=== PATIENT | female | born 1945 | race Caucasian/White ===

== ENCOUNTER → 2022-03-06 | Outpatient (CLI) | payer MEDICARE, OTHER, SELFPAY ==
--- NOTE | 2022-03-06 09:27 | STRESSREP_ITS ---
Stress Test Report Date: 03-06-2022 Procedure: Pharmacologic stress nuclear imaging study Indications: PACs/PVCs; hyperlipidemia; hypertension Consent: Per the patient Procedure: The patient underwent pharmacologic (Regadenoson 0.4mg ) evaluation with a peak heart rate of 111 beats per minute (78%predicted maximal heart rate) and a resting blood pressure of 134/84 mmHg and a peak blood pressure of 150/60 mmHg. The baseline ECG demonstrated sinus bradycardia; PAC. The peak pharmacologic ECG demonstrated no obvious ECG changes. There were occasional PACs pretest and occasional PVCs during recovery. There was transient chest discomfort at peak recovery with subsequent spontaneous resolution. The examination was discontinued secondary to completion of protocol. Impression: 1. Pharmacologic (Regadenoson) evaluation 2. Peak pharmacologic ECG with no obvious ECG changes. 3. There were occasional PACs pretest and occasional PVCs during recovery. 4. Nuclear images pending Myocardial perfusion imaging study: Technique: The patient was injected with 15.0 millicuries of technetium 99m Cardiolite and subsequently rest SPECT Cardiolite nuclear imaging was obtained in the horizontal long, vertical long, and short axis views. The patient underwent pharmacologic (Regadenoson) evaluation with a peak heart rate of 111 beats per minute (78% percent predicted maximal heart rate) and a resting blood pressure of 134/84 mmHg and a peak blood pressure of 150/60 mmHg. The patient was injected with 45.0 millicuries of technetium 99m Cardiolite and subsequently stress SPECT Cardiolite nuclear imaging was obtained in the horizontal long, vertical long, and short axis views. A gated Cardiolite study at peak stress was obtained. Interpretation: Rest and stress SPECT Cardiolite nuclear imaging status post realignment, normalization, and attenuation correction demonstrate an element of body motion during image acquisition and status post-rest a small area of subtle diminished tracer uptake near the apical segment. There is end systolic thickening and brightening. The gated Cardiolite study demonstrates myocardial thickening and inward wall motion. The reported LVEF is 16%. Impression: 1. Rest and stress SPECT Cardiolite nuclear imaging demonstrate an element of body motion during image acquisition and status post-rest a small area of subtle diminished tracer uptake near the apical segment which may be compatible with shifting soft tissue attenuation/artifact and/or physiologic apical thinning with no myocardial perfusion changes considered diagnostic for associated stress-induced myocardial ischemia. 2. The gated Cardiolite study reports an LVEF of 16% (question technical accuracy). This note was generated with [employer] software. It may contain incorrect words, spelling, and punctuation that were not noted in checking the note before signing.
== END | disposition home or self-care (01) ==
PROVIDERS: PCP Nurse Practitioner Adult Health; Visit Provider Internal Medicine Cardiovascular Disease
DX: R94.31 Abnormal electrocardiogram [ECG] [EKG] (principal); I49.3 Ventricular premature depolarization; E78.2 Mixed hyperlipidemia; I10 Essential (primary) hypertension
CPT/HCPCS: 78452; 93017; A9500; A4216; J2785

== ENCOUNTER → 2022-03-19 | Outpatient (CLI) | payer MEDICARE, OTHER, SELFPAY ==
--- NOTE | 2022-03-19 08:52 | ECHOD_ITS ---
Reason For Study: Abnormal EKG Procedure This was a 2D Doppler, Color Flow transthoracic echocardiogram. The study was technically difficult. Exam performed in department. Left Ventricle Normal LV size. Left ventricular systolic function is normal. The estimated ejection fraction is 55 %. No evidence for diastolic dysfunction. No regional wall motion abnormalities noted. Right Ventricle Normal RV size. Normal systolic function. Atria Normal left atrium. Normal right atrium. No doppler evidence for ASD. Mitral Valve There is no mitral annular calcification. Normal mitral valve. Trivial mitral valve insufficiency. Tricuspid Valve Normal tricuspid valve. Mild tricuspid valve insufficiency. Unable to estimate RV systolic pressure/pulmonary artery pressure due to technically difficult study. Aortic Valve Trisinus/trileaflet aortic valve. Normal aortic valve. Pulmonic Valve The pulmonic valve is not well visualized. Great Vessels Normal sized aortic root. Pericardium/Pleural No pericardial effusion. MMode/2D Measurements & Calculations LVIDd: 4.3 cm IVSd: 1.1 cm Ao root diam: 3.0 cm LVIDs: 3.0 cm LVPWd: 0.84 cm LA dimension: 3.8 cm RVDd: 2.9 cm FS: 31.2 % LAV(MOD-bp): 32.3 ml LA A4 area: 11.8 cm2 RA A4 area: 8.3 cm2 LAV(MOD-bp) Indexed: 17.7 ml/m2 LAV(MOD-sp2): 45.3 ml LAV(MOD-sp4): 21.5 ml Time Measurements MV dec time: 0.23 sec Doppler Measurements & Calculations MV E max josé: 89.5 cm/sec Lat Peak E' José: 12.8 cm/sec Med Peak E' José: 7.6 cm/sec MV A max josé: 104.7 cm/sec E/E' lat: 7.0 E/E' med: 11.7 MV E/A: 0.85 MV V2 max: 123.0 cm/sec MV P1/2t max josé: 93.7 cm/sec Ao V2 max: 146.3 cm/sec MV max P.1 mmHg MV P1/2t: 73.7 msec Ao max P.6 mmHg MV V2 mean: 59.3 cm/sec MV dec slope: 372.5 cm/sec2 Ao V2 mean: 101.8 cm/sec MV mean P.7 mmHg MVA(P1/2t): 3.0 cm2 Ao mean P.7 mmHg MV V2 VTI: 38.4 cm Ao V2 VTI: 34.8 cm AV (velocity ratio): 0.67 LV V1 max: 109.0 cm/sec PA V2 max: 88.2 cm/sec LV V1 max P.8 mmHg PA V2 mean: 66.9 cm/sec LV V1 mean P.3 mmHg LV V1 mean: 71.4 cm/sec LV V1 VTI: 23.3 cm ECHO/Echo Complete Interpretation Summary The study was technically difficult. Left ventricular systolic function is normal. The estimated ejection fraction is 55 %. Trivial mitral valve insufficiency. Mild tricuspid valve insufficiency. Unable to estimate RV systolic pressure/pulmonary artery pressure due to techni chayo difficult study. No evidence for diastolic dysfunction. Ordering Physician: Matt Barcenas Performed By: Walter Salinas [facility]
== END | disposition home or self-care (01) ==
LOC: CVS 08:51
PROVIDERS: PCP Nurse Practitioner Adult Health; Visit Provider Internal Medicine Cardiovascular Disease
DX: R94.31 Abnormal electrocardiogram [ECG] [EKG] (principal); R93.1 Abnormal findings on diagnostic imaging of heart and coronary circulation; I49.3 Ventricular premature depolarization; E78.2 Mixed hyperlipidemia
CPT/HCPCS: 93306